=== PATIENT | female | born 1990 | race African-American/Black ===

== ENCOUNTER 2023-07-01 23:38 | Inpatient (IN) | payer OTHER, SELFPAY ==
--- NOTE | 2023-07-01 23:38 | LDADM ---
This patient, Aniya De Souza, was admitted to Labor/Delivery/Recovery 106 on 07/01/23 at 23:38. Plans for labor, pain management and were discussed with patient. Patient/family oriented to hospital policies and general routines including ID bracelet, bed and alarms, visiting hours, pain management, procedures, bathroom and other care routines, personal items, smoking policy, room service/diet and guest tray routines, security routines, and visiting hours. Patient/Family are encouraged to report perceived risks to care and to ask questions if they do not understand what they are told or what they should do. See OBIX for further documentation.
[2023-07-02] VITALS (17 sets, daily range): BP systolic 101–145; BP diastolic 51–96; PULSE 65–216; RESP 16–18; TEMP 36.4–37.4; O2SAT 97–100; BMI 37.8
[2023-07-02 00:16] LABS: Basophils Percent Auto 0.4 % (0.2-1.2); Eosinophils Percent Auto 0.5 % (0-4.4); Hematocrit 33.8 % (37.0-47.0); Hemoglobin 10.9 g/dL (12.0-15.0); Immature Granulocyte Absolute 0.03 K/mm3 (0.00-0.031); Immature Granulocyte Percent A 0.4 % (0-0.5); Lymphocytes Absolute Auto 2.22 K/mm3 (0.9-3.2); Lymphocytes Percent Auto 28.8 % (18.3-44.2); Mean Corpuscular HGB Conc 32.2 g/dl (32-36); Mean Corpuscular Hemoglobin 24.7 pg (26-34); Mean Corpuscular Volume 76.6 fl (80-100); Monocytes Absolute Auto 0.9 K/mm3 (0.1-0.6); Monocytes Percent Auto 11.1 % (2.6-8.5); Neutrophils Absolute Auto 4.5 K/mm3 (1.3-6.7); Neutrophils Percent Auto 58.8 % (45.5-73.1); Platelet Count Result 249 k/mm3 (150-375); Red Blood Count 4.41 M/mm3 (4.2-5.4); Red Cell Distribution Width 15.4 % (11.5-14.5); White Blood Count 7.7 K/mm3 (4.5-10.0)
[2023-07-02 00:32] LABS: Alanine Aminotransferase 34 U/L (6-35); Albumin Level 4.1 g/dL (3.5-5.1); Alkaline Phosphatase 219 U/L (38-126); Anion Gap 12 mmol/L (8-16); Aspartate Amino Transferase 36 U/L (14-36); Bilirubin,Total 0.3 mg/dL (0.2-1.3); Blood Urea Nitrogen 6 mg/dL (7-17); Calcium 9.1 mg/dL (8.4-10.2); Carbon Dioxide 17 mmol/L (22-30); Chloride 105 mmol/L (98-107); Estimated Glomerular Filt Rate > 60; Glucose 91 mg/dL (65-110); Potassium 3.5 mmol/L (3.4-5.0); Sodium 134 mmol/L (137-145); Uric Acid 3.7 mg/dL (2.5-7.5)
[2023-07-02 01:06] LABS: HIV 1/2 Ab P24 Ag Result Negative (Negative)
--- NOTE | 2023-07-02 01:10 | P.HP_ITS ---
H&P: HPI History of Present Illness Date/Time: 07/02/23 01:10 Chief Complaint: Water broke. Narrative: 33 y/o at 39 2/7 weeks with gush of clear fluid around 2100. Brought in by ambulance. Was planning to deliver in [place]. Says her last visit was yesterday. She was taking ASA for a history of preeclampsia, but bp has been normal in this . 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 Meds Home Medications and Allergies Allergies Allergy/AdvReac Type Severity Reaction Status Date / Time No Known Allergies Allergy Verified 07/02/23 00:08 Vital Signs Vital Signs - 24 hr 07/02/23 00:00 07/02/23 00:05 07/02/23 00:10 Pulse Rate Blood Pressure Pulse Oximetry 97 100 100 07/02/23 00:15 07/02/23 00:23 07/02/23 00:25 Pulse Rate Blood Pressure Pulse Oximetry 100 100 98 07/02/23 01:00 Pulse Rate 85 Blood Pressure 123/72 Pulse Oximetry Exam Narrative: NST 140 bpm with variable decelerations TOCO: contractions every 2-3 min Cervix 5 cm on admission, with rapid progression to complete dilation. EXT nontender, with no edema H&P: Results Labs Labs: Short CBC 07/02/23 Range/Units 00:10 WBC 7.7 (4.5-10.0) K/mm3 Hgb 10.9 L (12.0-15.0) g/dL Hct 33.8 L (37.0-47.0) % Plt Count 249 (150-375) k/mm3 BMP 07/02/23 00:19 Sodium 134 L Potassium 3.5 Chloride 105 Carbon Dioxide 17 L BUN 6 L Creatinine 0.60 L Glucose 91 Calcium 9.1 Liver Function 07/02/23 Range/Units 00:19 Total Bilirubin 0.3 (0.2-1.3) mg/dL AST 36 (14-36) U/L ALT 34 (6-35) U/L Alkaline Phosphatase 219 H (38-126) U/L Albumin 4.1 (3.5-5.1) g/dL Assessment and Plan Assessment and plan (1) Term : Code(s): Z34.90 - Encounter for supervision of normal , unspecified, unspecified trimester Status: Acute Assessment and Plan: A: IUP at term with SROM / labor P: See delivery note.
[2023-07-02] MEDS: OXYTOCIN 30 UNITS/NS 500 ML 30 UNITS/500 ML BAG 125 UNITS IV CONT (01:16)
--- NOTE | 2023-07-02 01:18 | PM.OBPRVD ---
OB - Delivery Note Procedure Delivery date: 07/02/23 Procedure: Induction method: None Delivery monitor: External FHT and External Uterine Route of delivery: Laceration Description: None Specimen: Yes (Cord blood) Quantitative Blood Loss (ml): 100 Anesthesia type: None Disposition: PACU Complications: None Narrative: 33 y/o at 39 2/7 weeks here with SROM, brought in by ambulance. Had planned to deliver in [place]. records not available. Cervix was 5 cm on admission, with rapid progress to complete dilation. She had precipitous delivery of a male infant, followed by the placenta. I arrived and evaluated her. Placenta appeared intact with a 3 vessel cord. No lacerations. Bedside ultrasound showed empty uterus, save for a small clot in the lower uterine segment / cervix. Digital sweep of the cervix led to delivery of the clot. Hemostasis was excellent. Sponge, needle and instrument counts were correct. The patient was taken to recovery room in stable condition. The infant went to the nursery in stable condition. [place] Baby Date of : 07/02/23 Time of : 00:25 Weeks of gestation at delivery: 39 Infant gender: Male Weight (pounds): 6 presentation: vertex Placenta delivery description: Spontaneous and Normal Configuration Cord Vessel Description: 3 Vessels score one minute: 9 score five minutes: 9
[2023-07-02] MEDS: WITCH HAZEL 40 PADS 1 PAD TOPICAL (01:28)
[2023-07-02] MEDS: IBUPROFEN 600 MG TABLET PO ×3 (01:28→16:20)
[2023-07-02] MEDS: BENZOCAINE 20% AER SPR (*SP) 56 GM CAN 1 SPRAY TOPICAL (01:29)
--- NOTE | 2023-07-02 01:30 | PM.OBDSVD ---
DS: Admitting Diagnosis Discharge Date 07/03/23 Admitting Diagnosis IUP at term SROM DS: Discharge Diagnosis Discharge Diagnosis (1) (normal spontaneous vaginal delivery): Code(s): O80 - Encounter for full-term uncomplicated delivery Status: Acute OB - DS: Summary OB Procedures : None OB Procedures Intrapartum: Spontaneous Vag Delivery OB Procedures: : None Time Spent with Patient Time attestation: Total time spent providing and/or coordinating discharge services: DS: Data Data Completed and Pending Labs on day of discharge: Labs from last 24 hours 07/02/23 07/02/23 00:19 00:10 WBC 7.7 RBC 4.41 Hgb 10.9 L Hct 33.8 L MCV 76.6 L MCH 24.7 L MCHC 32.2 RDW 15.4 H Plt Count 249 MPV 11.0 H Immature Gran % (Auto) 0.4 Neut % (Auto) 58.8 Lymph % (Auto) 28.8 [place] % (Auto) 11.1 H Eos % (Auto) 0.5 Baso % (Auto) 0.4 Lymph # (Auto) 2.22 [place] # (Auto) 0.9 H Eos # (Auto) 0.0 Baso # (Auto) 0.0 Abs Immat Gran (auto) 0.03 Absolute Neuts (auto) 4.5 Absolute Nucleated RBC 0.0 Nucleated RBC % 0.0 Sodium 134 L Potassium 3.5 Chloride 105 Carbon Dioxide 17 L Anion Gap 12 BUN 6 L Creatinine 0.60 L Estim Creat Clear Calc Not Reportable Estimated GFR > 60 Glucose 91 Uric Acid 3.7 Calcium 9.1 Total Bilirubin 0.3 AST 36 ALT 34 Alkaline Phosphatase 219 H Total Protein 8.0 Albumin 4.1 RPR Pending Hep Bs Antigen Pending HIV 1&2 Ab/P24 Ag 4thGn Negative Rubella IgG Antibody Pending Blood Type B Positive Antibody Screen Negative Discharge Plan Discharge Attending physician on discharge: Stephen Zavaleta Discharging Clinician: Stephen Zavaleta Patient Disposition: Home, Self-Care Activity: pelvic rest Diet: regular Discharge Instructions: Call or return if temperature above 100.4? F, increased abdominal pain, increased vaginal bleeding or any new problems. Stand Alone Forms: General Discharge Information Follow-up/Referrals: Stephen Zavaleta MD [Physician] - 6 Weeks Discharge Medications: New ibuprofen 600 mg tablet 600 mg PO Q6H PRN (Reason: cramps) Qty: 30 0RF ferrous sulfate 325 mg (65 mg iron) tablet 325 mg PO DAILY Qty: 30 0RF Continued valacyclovir 1 gram tablet 1,000 mg PO DAILY omeprazole 20 mg capsule,delayed release(DR/EC) 20 mg PO DAILY PNV cmb#95-ferrous fumarate-FA [] 28 mg iron- 800 mcg tablet 1 tablet PO DAILY Discontinued Ish 24 Fe 1 mg-20 mcg (24)/75 mg (4) tablet 1 tablet PO DAILY Date of admission: 07/01/23 23:38 Primary Care Provider: PHYSICIAN,GRANT OFFICER Admitting Provider: Stephen Zavaleta Attending physician on admission: Stephen Zavaleta Condition: Stable
[2023-07-02 02:11] LABS: Hepatitis B Surface Antigen Negative (Negative)
[2023-07-02 02:37] LABS: Rubella IgG Antibody 15.2 IU/ML
[2023-07-02 03:28] LABS: Amphetamine Screen Urine Negative (Negative); Barbiturate Screen Urine Negative (Negative); Benzodiazepines Screen Urine Negative (Negative); Cannabinoid Screen Urine Negative (Negative); Cocaine Screen Urine Negative (Negative); Methadone Screen Urine Negative (Negative); Opiate Screen Urine Negative (Negative); Phencyclidine Screen Urine Negative (Negative)
[2023-07-02] MEDS: ACETAMINOPHEN 325 MG TABLET 650 MG PO (04:12)
[2023-07-02] MEDS: MULTIVIT/MIN/PREN/FOL AC/IRON TABLET 1 TAB PO (10:48)
[2023-07-02 13:49] LABS: Rapid Plasma Reagin Non-Reactive (NonReactive)
--- NOTE | 2023-07-02 14:23 | PC.NURSE ---
[id number] Introductions were made, then consulted with patient to assess needs related to . Mother led the conversation with her?plans to feed?her infant and the?experience so far. Resources provided for inpatient and outpatient services with the feeding sheet, mom/baby guide and name written on the white board. Mother voiced understanding of information and will call if there is a request for assistance. Reported to the primary RN.
--- NOTE | 2023-07-02 15:33 | PCCCNOTE ---
Met with pt. and her daughter today in the room. Pt. reports baby boy is her third child. She has not been able to get all necessary belongings together as she was not aware she was until just a couple of months ago. Pt. has a bassinet and some clothing at home. She is attempting to breast feed. She has utilized [facility] services in the past and will likely utilize this in the future. Resources provided for her to start this process. Pt. does not have a car seat, informed RN to please provide her with a car seat at discharge. A donation basket was provided to pt. for use, this is at bedside. Pt. denies any transportation concerns and reports she will be able to make it to upcoming follow up appointments for herself and baby boy. Pt. aware to anticipate discharge tomorrow and to inform RN if she requires any further case management needs. Pt. herself denies any other case management needs.
[2023-07-02] MEDS: DOCUSATE SODIUM 100 MG CAPSULE PO (16:20)
[2023-07-03 04:39] LABS: Hematocrit 29.6 % (37.0-47.0); Hemoglobin 9.1 g/dL (12.0-15.0)
[2023-07-03] MEDS: IBUPROFEN 600 MG TABLET PO (05:49)
[2023-07-03 07:55] VITALS: BP 115/65; PULSE 72; RESP 16; TEMP 36.7; O2SAT 100
[2023-07-03] MEDS: MULTIVIT/MIN/PREN/FOL AC/IRON TABLET 1 TAB PO (07:56)
[2023-07-03] MEDS: DOCUSATE SODIUM 100 MG CAPSULE PO (07:56)
[2023-07-03] MEDS: POLYSACCHARIDE IRON COMPLEX 150 MG CAPSULE PO (07:57)
--- NOTE | 2023-07-03 11:34 | PC.NURSE ---
Patient to view the discharge video Mother & Baby Care, The First Two Weeks online. Patient was given the opportunity and encouraged to ask questions. Patient verbalized understanding of information shared and has been given the mother/baby guide for home reference.
--- NOTE | 2023-07-03 12:26 | PM.OBPNVD ---
OB - PN: Subj Subjective Date/time seen: 07/03/23 12:26 Narrative: Pain OK. Would like to go home. OB - PN: Obj Data Labs 07/03/23 03:53 07/02/23 00:19 Labs: Laboratory Results - last 24 hr 07/02/23 07/03/23 00:10 03:53 Hgb 9.1 L Hct 29.6 L RPR Non-reactive OB - PN A/P Plan day: 1 Comments: A: PPD#1, doing well. P: Home to f/u 6 weeks. Exam Psych: Other: AVSS ABD soft, nontender, fundus firm EXT nontender
--- NOTE | 2023-07-03 13:43 | PC.NURSE ---
1313 When going over mother's discharge instructions she declined needing a breast pump, per mom she is going to breastfeed and also bottle feed baby formula.
== END 2023-07-03 13:30 | disposition home or self-care (01) | DRG 560 ==
LOC: ANHLDR 07-02 01:31 → ANHOB2 07-02 03:27
PROVIDERS: Admitting Provider Obstetrics & Gynecology; Visit Provider Obstetrics & Gynecology
DX: O62.3 Precipitate labor (principal); Z37.0 Single live birth; Z3A.38 38 weeks gestation of pregnancy
CPT/HCPCS: 36415; 80053; 80307; 84550; 85014; 85018; 85025; 86592; 86703; 86762; 86850; 86900; 86901; 87340; A9270; G0432; J2590